=== PATIENT | male | born 1945 | race Caucasian/White ===

== ENCOUNTER 2021-04-18 08:04 | Emergency (ER) | payer MEDICARE, BC ==
[~2021-04-18] VITALS: Ht 182.9 cm; Wt 79.5 kg
[2021-04-18 08:09] VITALS: BP 125/77
[2021-04-18] MEDS ORDERED: enoxaparin 100mg/ml syringe SUBCUT ONE (09:50)
[2021-04-18] MEDS ORDERED: enoxaparin 80mg/0.8ml syringe SUBCUT ONE (09:50)
[2021-04-18] MEDS ORDERED: APIX5TAB3 PO (09:54)
== END 2021-04-18 10:05 | disposition home or self-care (01) ==
LOC: ER 08:07
DX: I82.442 Acute embolism and thrombosis of left tibial vein (principal); Z79.01 Long term (current) use of anticoagulants; Z98.890 Other specified postprocedural states
CPT/HCPCS: 93970; 96372; 99284; J1650